=== PATIENT | male | born 1975 | race Caucasian/White ===

== ENCOUNTER 2016-12-13 13:04 | Emergency (ER) | payer MEDICAID ==
[2016-12-13 13:43] LABS: ALBUMIN 4.1 g/dL (3.4-5.0); ALKALINE PHOSPHATASE 69 U/L (46-116); ALT (SGPT) 25 U/L (10-68); BILIRUBIN - TOTAL 0.96 mg/dL (0.2-1.3); CALC OSMOLALITY 279 mosm/kg (275-300); CALCIUM 8.6 mg/dL (8.5-10.1); CARBON DIOXIDE 30.1 mmol/L (21.0-32.0); CHLORIDE - SERUM 105 mmol/L (98-107); GLUCOSE 110 mg/dL (74-106); PROTEIN - SERUM 7.7 g/dL (6.4-8.2); SODIUM 139 mmol/L (136-145); UREA NITROGEN 14 mg/dL (7-18); eGFR NON AFRICAN AMERICAN 88 mL/min (90-120)
[2016-12-13 14:01] LABS: BASOPHILS 0.5 % (0-2); EOSINOPHILS 2.4 % (0-7); HEMATOCRIT 46.5 % (42.0-54.0); HEMOGLOBIN 15.7 g/dL (13.5-17.5); LYMPHOCYTES 30.8 % (15-50); MCH 31.3 pg (26.0-34.0); MCHC 33.8 g/dL (31.0-37.0); MCV 92.6 fL (80.0-100.0); MEAN PLATELET VOLUME 11.1 fL (7.4-10.4); MONOCYTES 11.3 % (2-11); PLATELET COUNT 258 10x3/uL (130-400); RBC 5.02 10x6/uL (4.20-6.10); RDW 13.6 % (11.5-14.5); WBC 6.3 10x3/uL (4.8-10.8)
[2016-12-13 14:31] LABS: INR 0.96 (0.85-1.17); PROTIME 12.6 SECONDS (11.6-15.0)
[2016-12-13 14:39] LABS: CREATINE KINASE 123 UL (21-232); PRO BNP 15 pg/mL (0-125); TROPONIN-I < 0.017 ng/mL (0.000-0.060)
[2016-12-13 15:46] LABS: APPEARANCE CLEAR (CLEAR); BILIRUBIN NEGATIVE (NEGATIVE); COLOR YELLOW (YELLOW); GLUCOSE NEGATIVE (NEGATIVE); KETONE NEGATIVE (NEGATIVE); LEUKOCYTE ESTERASE NEGATIVE (NEGATIVE); NITRITE NEGATIVE (NEGATIVE); PROTEIN NEGATIVE (NEGATIVE); UROBILINOGEN NORMAL (NORMAL)
[2016-12-13 15:51] LABS: BACTERIA FEW /hpf (NONE SEEN)
[2016-12-13 15:54] LABS: UDS - AMPHET POSITIVE QUAL (NEGATIVE); UDS - BARB NEGATIVE QUAL (NEGATIVE); UDS - BENZO NEGATIVE QUAL (NEGATIVE); UDS - COCAINE NEGATIVE QUAL (NEGATIVE); UDS - METH NEGATIVE QUAL (NEGATIVE); UDS - OPIATE POSITIVE QUAL (NEGATIVE); UDS - PCP NEGATIVE QUAL (NEGATIVE); UDS - THC POSITIVE QUAL (NEGATIVE)
== END 2016-12-13 19:04 | disposition home or self-care (01) ==
LOC: D.ER 13:04
PROVIDERS: Emergency Medicine; Nurse Practitioner Family
DX: N20.0 Calculus of kidney (principal); R10.11 Right upper quadrant pain; J45.909 Unspecified asthma, uncomplicated; R11.0 Nausea; R09.89 Other specified symptoms and signs involving the circulatory and respiratory systems; R07.9 Chest pain, unspecified; R06.2 Wheezing; R00.1 Bradycardia, unspecified; I45.10 Unspecified right bundle-branch block

== ENCOUNTER 2017-06-28 15:18 | Emergency (ER) | payer MEDICAID ==
[2017-06-28 17:09] LABS: BASOPHILS 0.5 % (0-2); EOSINOPHILS 0 % (0-7); HEMATOCRIT 45.4 % (42.0-54.0); HEMOGLOBIN 15.4 g/dL (13.5-17.5); IMMATURE GRANULOCYTES 0.1 % (0-5); LYMPHOCYTES 14.4 % (15-50); MCH 30.5 pg (26.0-34.0); MCHC 33.9 g/dL (31.0-37.0); MCV 89.9 fL (80.0-100.0); MEAN PLATELET VOLUME 10.5 fL (7.4-10.4); MONOCYTES 14.4 % (2-11); NEUTROPHILS 70.6 % (40-80); PLATELET COUNT 287 10x3/uL (130-400); RBC 5.05 10x6/uL (4.20-6.10); RDW 13.3 % (11.5-14.5); WBC 8.1 10x3/uL (4.8-10.8)
[2017-06-28 17:22] LABS: ALKALINE PHOSPHATASE 84 U/L (46-116); ALT (SGPT) 32 U/L (10-68); BILIRUBIN - TOTAL 0.88 mg/dL (0.2-1.3); CALC OSMOLALITY 271 mosm/kg (275-300); CALCIUM 8.6 mg/dL (8.5-10.1); CARBON DIOXIDE 26.8 mmol/L (21.0-32.0); CHLORIDE - SERUM 100 mmol/L (98-107); CREATININE - SERUM 1.1 mg/dL (0.6-1.3); GLUCOSE 96 mg/dL (74-106); POTASSIUM - SERUM 3.7 mmol/L (3.5-5.1); PROTEIN - SERUM 7.7 g/dL (6.4-8.2); SODIUM 137 mmol/L (136-145); UREA NITROGEN 7 mg/dL (7-18); eGFR NON AFRICAN AMERICAN 79 mL/min (90-120)
== END 2017-06-28 17:47 | disposition home or self-care (01) ==
LOC: D.ER 15:18
PROVIDERS: Physician Assistant Medical
DX: J44.1 Chronic obstructive pulmonary disease with (acute) exacerbation (principal); J44.9 Chronic obstructive pulmonary disease, unspecified

== ENCOUNTER 2017-11-09 22:14 | Emergency (ER) | payer MEDICAID ==
[~2017-11-09] VITALS: Ht 172.7 cm; Wt 81.8 kg
[2017-11-09 22:46] VITALS: BP 120/79; Ht 172.7 cm; Wt 81.8 kg
== END 2017-11-10 00:37 | disposition left against medical advice (07) ==
LOC: D.ER 22:14
DX: J45.909 Unspecified asthma, uncomplicated (principal)

== ENCOUNTER 2018-04-02 20:18 | Emergency (ER) | payer SELFPAY ==
[~2018-04-02] VITALS: Ht 172.7 cm; Wt 77.3 kg
[2018-04-02 20:29] VITALS: Ht 172.7 cm; Wt 77.3 kg
[2018-04-02] MEDS ORDERED: ALBUTEROL SULF8.5 GM (20:30)
[2018-04-02] MEDS ORDERED: VENTOLIN HFA18 GM INH (22:05)
[2018-04-02] MEDS ORDERED: FLOVENT HFA 11012 GM INH (22:05)
[2018-04-02] MEDS ORDERED: ZITHROMAX TRI-500 MG PO (22:05)
[2018-04-02 22:40] VITALS: BP 127/83
== END 2018-04-02 22:40 | disposition home or self-care (01) ==
LOC: D.ER 20:18
DX: J40 Bronchitis, not specified as acute or chronic (principal); J98.01 Acute bronchospasm

== ENCOUNTER 2018-12-10 15:44 | Emergency (ER) | payer MEDICAID ==
[~2018-12-10] VITALS: Ht 172.7 cm; Wt 75.0 kg
[~2018-12-10 15:44] MED LIST: ALBUTEROL SULF8.5 GM; FLOVENT HFA 11012 GM INH; VENTOLIN HFA18 GM INH; ZITHROMAX TRI-500 MG PO
[2018-12-10 15:49] VITALS: BP 133/83; Ht 172.7 cm; Wt 75.0 kg
[2018-12-10] MEDS ORDERED: VOLTAREN75 MG PO (17:00)
[2018-12-10] MEDS ORDERED: BACLOFEN20 M1 PO (17:00)
== END 2018-12-10 16:25 | disposition home or self-care (01) ==
LOC: D.ER 15:44
DX: M54.12 Radiculopathy, cervical region (principal)

== ENCOUNTER 2019-05-17 21:11 | Emergency (ER) | payer MEDICAID ==
[~2019-05-17] VITALS: Ht 172.7 cm; Wt 75.0 kg
[~2019-05-17 21:11] MED LIST changes: +BACLOFEN20 M1 PO; +VOLTAREN75 MG PO
[2019-05-17 21:18] VITALS: Ht 172.7 cm; Wt 75.0 kg
[2019-05-17] MEDS ORDERED: STERAPRED 5MG 65 M1 PO (21:57)
== END 2019-05-17 22:05 | disposition home or self-care (01) ==
LOC: D.ER 21:11
DX: J45.901 Unspecified asthma with (acute) exacerbation (principal)

== ENCOUNTER 2019-07-26 11:46 | Emergency (ER) | payer MEDICAID ==
[~2019-07-26] VITALS: Ht 172.7 cm; Wt 72.7 kg
[~2019-07-26 11:46] MED LIST changes: +ALBUTEROL SULF8.5 GM INH; +ALBUTEROL2.5 MG/3 M INH; +DOXYCYCLINE HY100 M2 PO; +MEDROL DOSE PACK4 MG PO; +STERAPRED 5MG 65 M1 PO
[2019-07-26 11:51] VITALS: Ht 172.7 cm; Wt 72.7 kg
[2019-07-26] MEDS ORDERED: PROAIR HFA8.5 G1 INH (12:42)
[2019-07-26] MEDS ORDERED: PREDNISONE20 MG PO (12:42)
[2019-07-26 13:13] VITALS: BP 148/85
== END 2019-07-26 13:14 | disposition home or self-care (01) ==
LOC: D.ER 11:46
DX: J45.901 Unspecified asthma with (acute) exacerbation (principal)

== ENCOUNTER 2020-08-17 12:08 | Emergency (ER) | payer MEDICAID ==
[~2020-08-17] VITALS: Ht 172.7 cm; Wt 72.7 kg
[~2020-08-17 12:08] MED LIST changes: +ERYTHROMYCIN OPT1 GM RIGHT EYE; +PREDNISONE20 MG PO; +PROAIR HFA8.5 G1 INH
[2020-08-17 12:14] VITALS: Ht 172.7 cm; Wt 72.7 kg
[2020-08-17] MEDS ORDERED: IPRAT-ALBUT 0.5-3 ML UPD (12:16)
[2020-08-17 12:45] LABS: CALC OSMOLALITY 277 mosm/kg (275-300); CARBON DIOXIDE 27.7 mmol/L (21.0-32.0); CHLORIDE - SERUM 103 mmol/L (98-107); CREATININE - SERUM 0.9 mg/dL (0.6-1.3); GLUCOSE 94 mg/dL (74-106); POTASSIUM - SERUM 3.9 mmol/L (3.5-5.1); SODIUM 139 mmol/L (136-145); UREA NITROGEN 12 mg/dL (7-18); eGFR NON AFRICAN AMERICAN > 90 mL/min (90-120)
[2020-08-17 12:47] LABS: EOSINOPHILS 13.1 % (0-7); HEMATOCRIT 45.7 % (42.0-54.0); IMMATURE GRANULOCYTES 0.1 % (0-5); LYMPHOCYTE ABS# 1.66 10x3/uL (1.32-3.57); LYMPHOCYTES 21.3 % (15-50); MCH 30.5 pg (26.0-34.0); MCHC 32.8 g/dL (31.0-37.0); MCV 93.1 fL (80.0-100.0); MEAN PLATELET VOLUME 10.4 fL (7.4-10.4); NEUTROPHIL ABS# 4.32 10x3/uL (1.78-5.38); NEUTROPHILS 55.5 % (40-80); PLATELET COUNT 365 10x3/uL (130-400); RBC 4.91 10x6/uL (4.20-6.10); RDW 13.6 % (11.5-14.5); WBC 7.8 10x3/uL (4.8-10.8)
[2020-08-17 12:54] LABS: APTT 29.4 SECONDS (22.8-39.4); INR 0.97 (0.85-1.17); PROTIME 11.9 SECONDS (11.6-15.0)
[2020-08-17 13:02] LABS: ALBUMIN 3.7 g/dL (3.4-5.0); ALKALINE PHOSPHATASE 77 U/L (30-120); ALT (SGPT) 29 U/L (10-68); BILIRUBIN - TOTAL 0.57 mg/dL (0.2-1.3); CKMB 1.9 U/L (0.0-3.6); CREATINE KINASE 69 UL (21-232); PRO BNP 10 pg/mL (0-125); PROTEIN - SERUM 7.3 g/dL (6.4-8.2); TROPONIN-I < 0.017 ng/mL (0.000-0.060)
[2020-08-17 13:38] VITALS: BP 133/90
[2020-08-17] MEDS ORDERED: VENTOLIN HFA [SP8 GM INH (15:18)
== END 2020-08-17 15:25 | disposition home or self-care (01) ==
LOC: D.ER 12:08
PROVIDERS: Emergency Medicine
DX: J45.909 Unspecified asthma, uncomplicated (principal); Z91.19 Patient's noncompliance with other medical treatment and regimen; R06.02 Shortness of breath

== ENCOUNTER 2020-08-29 20:07 | Emergency (ER) | payer MEDICAID ==
[2020-08-17 12:14] VITALS: BMI 24.3
[~2020-08-29 20:07] MED LIST changes: +IPRAT-ALBUT 0.5-3 ML UPD; +VENTOLIN HFA [SP8 GM INH
== END 2020-08-29 20:30 | disposition left against medical advice (07) ==
LOC: D.ER 20:07
DX: S49.91XA Unspecified injury of right shoulder and upper arm, initial encounter (principal)